=== PATIENT | female | born 1990 | race Asian ===

== ENCOUNTER 2022-02-09 15:14 | Outpatient (CLI) | payer MEDICAID, SELFPAY | END 2022-02-09 15:15 | disposition home or self-care (01) | LOC: DS 15:15 | PROVIDERS: PCP Nurse Practitioner; Visit Provider Dietitian, Registered ==

== ENCOUNTER 2022-07-31 12:29 | Outpatient (REF) | payer MEDICAID, SELFPAY ==
--- NOTE | 2022-07-31 14:20 | PAPFT_PTH ---
PATIENT: Lisa Andino LOC: [facility] U#:[id number] AGE/SX: 32/F ROOM: RE07/31/[address]: Nikki Frias DO : 1990 BED: DIS: 07/31/2022 SPEC #: [id number] RECD: 08/01/22 13:01 STATUS: ANJUM REMaximo #: [id number] ALLIE: 07/31/22 14:[address]: Nikki Frias DEPT: [facility] Cytology RECD BY: Dory Santoro ENTERED: 08/01/22 13:01 SP TYPE: PAPFT OTHR DR: Buffy Burch APRN Tissues: 1 - CX/ENDOCX FOR PAP SMEARS Procedures: PAP THIN PREP/UVM Screening HPV DNA PROBE Comments: [id number]
== END 2022-07-31 12:30 | disposition home or self-care (01) ==
LOC: LBN 12:29
PROVIDERS: PCP Nurse Practitioner; Visit Provider Obstetrics & Gynecology
DX: Z12.4 Encounter for screening for malignant neoplasm of cervix (principal)
CPT/HCPCS: 88142; 87624

== ENCOUNTER 2023-05-22 16:09 | Outpatient (REF) | payer MEDICAID, SELFPAY ==
--- NOTE | 2023-05-22 13:30 | PAPFT_PTH ---
PATIENT: Lisa Andino LOC: [facility] U#:[id number] AGE/SX: 32/F ROOM: RE05/22/[address]: Nikki Frias DO : 1990 BED: DIS: 05/22/2023 SPEC #: [id number] RECD: 05/22/23 18:29 STATUS: ANJUM REQ #: [id number] ALLIE: 05/22/23 13:[address]: Nikki Frias DEPT: [facility] Cytology RECD BY: Dory Santoro ENTERED: 05/22/23 18:29 SP TYPE: PAPFT OT DR: Buffy Burch APRN Tissues: 1 - CX/ENDOCX FOR PAP SMEARS Procedures: PAP THIN PREP/UVM Screening HPV DNA PROBE Comments: [id number] (CHLAMYDIA/GC)
[2023-05-23 15:36] LABS: Chlamydia Result Negative (Negative); GC Result Negative (Negative)
== END 2023-05-22 16:10 | disposition home or self-care (01) ==
LOC: LBN 16:09
PROVIDERS: PCP Nurse Practitioner; Visit Provider Obstetrics & Gynecology
DX: Z11.3 Encounter for screening for infections with a predominantly sexual mode of transmission (principal); Z12.4 Encounter for screening for malignant neoplasm of cervix; Z87.410 Personal history of cervical dysplasia; Z11.51 Encounter for screening for human papillomavirus (HPV)
CPT/HCPCS: 87491; 87591; 88142; 87624

== ENCOUNTER 2025-03-12 11:36 | Emergency (ER) | payer MEDICAID, SELFPAY ==
[2025-03-12 11:39] VITALS: BP 115/76; PULSE 87; RESP 20; TEMP 36.7; O2SAT 95
[2025-03-12 11:59] VITALS: BP 115/76; PULSE 87; RESP 20; TEMP 36.7; O2SAT 95
--- NOTE | 2025-03-12 13:42 | ED.GENADUL_ITS ---
Discharge Plan Disposition Patient Disposition: Home Discharge Details Clinical Impression: Pain, dental Primary Care Provider: Buffy Burch ED Provider: Luz Carlos Home Meds and New Rx's Prescriptions: New amoxicillin-pot clavulanate 875-125 mg tablet 1 tab PO BID Qty: 13 0RF No Action trazodone 100 mg tablet 100 mg PO DAILY aripiprazole 5 mg tablet 5 mg PO DAILY trazodone 100 mg tablet 100 mg PO DAILY PRN lithium carbonate 450 mg tablet extended release 450 mg PO QHS lithium carbonate 300 mg capsule 300 mg PO QHS nicotine 14 mg/24 hr patch 24 hour 1 patch transdermal DAILY Qty: 28 0RF nicotine 21 mg/24 hr patch 24 hour 1 patch transdermal DAILY Qty: 28 0RF nicotine 7 mg/24 hr patch 24 hour 1 patch transdermal Q24H Qty: 28 0RF albuterol sulfate 90 mcg/actuation HFA aerosol inhaler 2 puff inhalation QID PRN (Reason: shortness of breath or wheezing) Qty: 8.5 5RF Discharge Instructions Instructions: Dental Pain (DC) Additional Instructions: A referral has been placed to care management for helping you establish care with a primary care provider. You are being provided a list of dental providers in the area. I recommend that you call around to get seen by a dentist for definitive management of your dental infection You are being treated with Augmentin, an antibiotic. Please take the full course as prescribed. Please keep in mind that this may cause antibiotic associated diarrhea, I recommend taking with Activia yogurt or probiotics to help with this. Use Tylenol and ibuprofen as needed for discomfort. Orajel may also be helpful. Ice packs may also be helpful. Return to emergency if develop new severe pain/swelling despite treatment, new fever/chills, difficulty opening your mouth or swallowing, other swelling inside your mouth, or if you are very worried and need to be rechecked again immediately Referrals: Care Management [Provider Group] HPI General Date/Time Provider Initiated Documentation: 03/12/25 13:06 . HPI Narrative: Lisa is a 34-year-old female presents to the emergency department today for evaluation of left lower jaw dental pain/swelling at gumline. She reports this has been ongoing for many months. It has not been draining. Denies difficulty opening mouth, fever/chills, headaches, vision changes. Does not have a current primary care provider or dentist. She has a history of limited dental care previously. Unsure of last antibiotic use, thinks she can take amoxicillin with out difficulty. Denies past medical history of heart, lung problems, diabetes, or immunocompromise. Related Data Home Medications ?Medication ?Instructions ?Recorded ?Confirmed trazodone 100 mg tablet 100 mg PO DAILY 01/23/2207/27 aripiprazole 5 mg tablet 5 mg PO DAILY 01/24/2203/12 lithium carbonate 300 mg capsule 300 mg PO QHS 2 03/12/25 lithium carbonate 450 mg 450 mg PO QHS 01/24/2203/12 tablet,extended release nicotine 14 mg/24 hr daily 1 patch transdermal DAILY # 28 ea 01/24/22 03/12/25 transdermal patch nicotine 21 mg/24 hr daily 1 patch transdermal DAILY # 28 ea 01/24/22 03/12/25 transdermal patch nicotine 7 mg/24 hr daily 1 patch transdermal Q24H #28 ea 01/24/22 03/12/25 transdermal patch trazodone 100 mg tablet 100 mg PO DAILY PRN 01/24/22 03/12/25 albuterol sulfate 90 mcg/actuation 2 puff inhalation Q ID PRN 06/27/22 03/12/25 aerosol inhaler shortness of breath or wheez ing #8.5 grams amoxicillin 875 mg-potassium 1 tab PO BID #13 tabs 07/27 clavulanate 125 mg tablet Previous Rx's ?Medication ?Instructions ?Recorded nicotine 14 mg/24 hr daily 1 patch transdermal DAILY # 28 ea 01/24/22 transdermal patch nicotine 21 mg/24 hr daily 1 patch transdermal DAILY # 28 ea 01/24/22 transdermal patch nicotine 7 mg/24 hr daily 1 patch transdermal Q24H #28 ea 01/24/22 transdermal patch albuterol sulfate 90 mcg/actuation 2 puff inhalation Q ID PRN 06/27/22 aerosol inhaler shortness of breath or wheez ing #8.5 grams amoxicillin 875 mg-potassium 1 tab PO BID #13 tabs 07/27 clavulanate 125 mg tablet Allergies Allergy/AdvReac Type Severity Reaction Status Date / Time animal dander Allergy Other (See Verified 03/12/25 11:42 Comment) peanuts Allergy Severe Other (See Uncoded 03/12/25 11:42 Comment) pollen Allergy Severe Unknown Uncoded 03/12/25 11:42 salmon Allergy Severe Unknown Uncoded 03/12/25 11:42 General Stated Complaint: DentalOral MATEO: 4 Exam Narrative Exam Narrative: General Appearance: Normal. She is alert and oriented, no acute distress Vital signs: Within normal limits. HEENT: No difficulty opening mouth. + Swelling at gumline of left lower molars. Poor dentition noted throughout. No drainage/erythema. No intraoral swelling or swelling under the tongue consistent with Anderson's angina. Clear voice. Full painless range of motion. No cervical or submandibular lymphadenopathy. Skin: Warm and dry, no rash. Psychiatric: Normal. Course Vital Signs Vital signs: Vital Signs Temperature 36.7 C 03/12/25 11:39 Pulse 87 03/12/25 11:39 Respiratory Rate 20 03/12/25 11:39 Blood Pressure 115/76 03/12/25 11:39 Pulse Oximetry 95 03/12/25 11:39 Temperature 36.7 C 03/12/25 11:59 Temperature Source Oral 03/12/25 11:59 Pulse 87 03/12/25 11:59 Respiratory Rate 20 03/12/25 11:59 Blood Pressure 115/76 03/12/25 11:59 Pulse Oximetry 95 03/12/25 11:59 Oxygen Delivery Method Room Air 03/12/25 11:59 Oxygen Flow Rate 0 03/12/25 11:59 Pain Level 9 03/12/25 11:59 Medical Decision Making Initial Assessment: 34-year-old female with dental infection ED Course: - Evaluated dental infection - Confirmed no history of similar infections - Assessed for antibiotic allergies - Recommended Tylenol or ibuprofen for discomfort - Suggested ice pack application -Augmentin initiated - Provided list of local dentists Final Assessment: Oral infection with abscess. No red flags concerning for deep space infection/cranial nerve involvement or serious systemic illness requiring diagnostic imaging/emergent blood work. No history of similar infections. No recent dental care. No known antibiotic allergies confirmed. Clinical Impression: - Oral infection Disposition: - Discharge home. Prescription for Augmentin pending allergy confirmation. Advised follow-up with primary care provider for further evaluation. Referral made to care management Follow-Up: - Establish care with primary care provider - Follow-up with local dentist - Reviewed discharge instructions with patient, including use of antibiotics and red flags indicate need for return to emergency care Patient Education: - Tylenol or ibuprofen for discomfort - Ice pack application - List of local dentists provided Patient consented to the use of [facility] All Active Problems (Updated 03/12/25 @ 13:44 by Luz Layne) Pain, dental (Acute) Somatic complaints, multiple (Acute) Urinary incontinence in female (Acute) Patient reports stress urinary incontinence. 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 Severe Dysplasia, positive ectocervical margins, negative Top Hat and endocervical margins will need pa smear q 6 months x 2 years. Completion of surviellance 01/2024. Pap to be performed at OB intake 05/2024 Smoker (Acute) Schizoaffective disorder, bipolar type (Acute) Medical History Depression Family History Brother Asthma Maternal Grandmother No problems noted. Mother Depression Hypertension Paternal Grandmother Diabetes Maternal Aunt No problems noted. Paternal Grandfather Cancer Social History Smoking/Tobacco Use Status: Current every day Tobacco Type: cigarettes Tobacco: How many years used: 12 Quit status: considering quitting Smoking risk assessment performed?: Yes Alcohol Intake: never Drug use: Never Substance use type: does not use Adopted: No Caregiver/Support person: No Foster care: No Household members: significant other and children Housing: apartment Number of Children: 2 Communication Needs: None Education Level: high school Do you need help understanding health information?: Often Pets and animals: Yes Pets and animals: dog(s) Sexually active: Yes Do you think of yourself as: straight/heterosexual Current gender identity: female What is your relationship status?: living with partner How often do you talk on the phone with friends or family?: three or more times per week How often do you get together with friends or relatives?: three or more times per week Do you belong to any clubs or organized social groups?: no Panel score (0-1 are the most socially isolated patients): 2 What type of physical activity do you participate in: none Nohemy/Taoism: Holiness Special nohemy needs: No Seatbelt use: always Helmet use: Yes Helmet use: always Drive intox or ride w/intox new aut[employer] delivery driver: No Do you feel safe at home: Yes Do you feel safe in your relationship?: Yes History History 2 Para 2 Hx # Term Pregnancies 2 Multiple births Hx # Pregnancies Ectopic pregnancies AB induced Hx Number of Living Children 2 AB spontaneous
[2025-03-12] MEDS: Amoxicillin 875/Clav. 125 TAB PO (13:52)
[2025-03-12 13:54] VITALS: BP 116/78; PULSE 81; RESP 16; O2SAT 99
== END 2025-03-12 14:00 | disposition home or self-care (01) ==
PROVIDERS: Emergency Provider Nurse Practitioner Family; PCP Nurse Practitioner
DX: K08.89 Other specified disorders of teeth and supporting structures (principal); F17.210 Nicotine dependence, cigarettes, uncomplicated
CPT/HCPCS: 99283